=== PATIENT | male | born 1945 | race Hispanic/Latino ===

== ENCOUNTER → 2017-04-07 | Outpatient (CLI) | payer MEDICARE ==
[~2017-04-07] MED LIST: ALBU6.7H IH; AML2.5T PO; AMLO10TA82 PO; ASPI-586 PO; AZIT250T81 PO; FERR325T17 PO; LEVO750T9 PO; LISI1TAB10 PO; MTP50T PO; PRCD5U PO; SILD50TA PO
--- NOTE | 2017-04-07 10:03 | Diagnostic Imaging Report ---
Indication: Left leg pain and swelling. Comparison: None. Technique: The left lower extremity deep venous system was interrogated from the common femoral vein through the popliteal vein. These images were assessed for grayscale appearance, color and spectral Doppler blood flow, compression, and augmentation. Findings: There is no evidence of intraluminal filling defect. Normal compression and augmentation is noted throughout. Soft tissues are unremarkable. Impression: 1. No sonographic evidence of deep venous thrombosis in the left lower extremity. Dictated by: Dictated on workstation # [id number]
== END ==
LOC: RAD 09:18
PROVIDERS: ATTEND Family Medicine
DX: M79.662 Pain in left lower leg (principal)